=== PATIENT | female | born 1945 | race African-American/Black ===

== ENCOUNTER 2021-01-20 11:42 | Observation (INO) ==
[2021-01-20 12:09] LABS: Basophils % 0.3 % (0.0-0.8); Eosinophils # 0.1 10*3/uL (0.0-0.87); Eosinophils % 1.5 % (0.00-10.9); Hematocrit 35.2 VOL% (35.7-47.0); Hemoglobin 11.3 GM/DL (12.0-16.0); Immature Granulocytes % 0.7 %; Immature Granulocytes Absolute 0.06 #; Lymphocytes # 2.4 10*3/uL (1.4-4.0); Mean Corpuscular HGB Conc 32.1 GM/DL (32-36); Mean Corpuscular Volume 91.4 FL (87-102); Mean Platelet Volume 9.3 FL (9.6-12.0); Monocytes % 8.1 % (1.7-12.7); Neutrophils % 63.4 % (38.7-73.9); Platelet Count 311 T/CUMM (130-400); Red Blood Count 3.85 MC/CUMM (3.8-5.5); Red Cell Distribution Width 14.6 % (9.3-17.3); White Blood Count 9.1 T/CUMM (4-12)
[2021-01-20 12:22] LABS: PT Patient Result 10.8 SECS (9.8-11.9)
[2021-01-20 12:34] LABS: Alanine Aminotransferase < 9 U/L (13-56); Albumin 3.5 G/DL (3.4-5.0); Alkaline Phosphatase 65 U/L (45-117); Anisocytosis 1+; Aspartate Amino Transferase 12 U/L (0-37); Bilirubin,Total < 0.39 MG/DL (0.2-1.0); Blood Urea Nitrogen 13 MG/DL (7-18); Burr Cells Few; Calcium 9.4 MG/DL (8.5-10.1); Carbon Dioxide 21 MMOL/L (21-32); Eosinophils 2 % (0-10); Estimated Glom Filtration Rate 66 ML/MIN; Glucose 96 MG/DL (74-106); Lymphocytes 30 % (20-55); Osmolality,Calculated 276.5 MOS/KG (273-304); Platelet Estimate Normal; Potassium 4.1 MMOL/L (3.5-5.1); Segmented Neutrophils 62 % (50-85); Sodium 139 MMOL/L (136-145); Total Cells Counted 100; Total Protein 7.7 G/DL (6.4-8.2)
[2021-01-20] MEDS ORDERED: ACETAMINOPHEN 500 MG TABLET PO STA (15:09)
[2021-01-20] MEDS ORDERED: ALUMINUM/MAGNES/SIMETH MAX STR 30 ML UDCUP PO PRN (15:37)
[2021-01-20] MEDS ORDERED: GLUCAGON 1 MG VIAL IM PRN (15:37)
[2021-01-20] MEDS ORDERED: guaiFENesin/DM ER 600-30 MG TABLET PO PRN (15:37)
[2021-01-20] MEDS ORDERED: hydrALAZINE 20 MG/1 ML VIAL IV PRN (15:37)
[2021-01-20] MEDS ORDERED: ONDANSETRON 4 MG/2 ML VIAL IV PRN (15:37)
[2021-01-20] MEDS ORDERED: diphenhydrAMINE CAP 25 MG CAPSULE PO PRN (15:37)
[2021-01-20] MEDS ORDERED: DEXTROSE 50% 25 GM/50 ML VIAL IV PRN (15:37)
[2021-01-20] MEDS ORDERED: CALCIUM CARBONATE CHEW 500 MG TABLET PO PRN (15:37)
[2021-01-20] MEDS ORDERED: ACETAMINOPHEN 325 MG TABLET PO PRN (15:37)
[2021-01-20] MEDS ORDERED: DOCUSATE SODIUM 100 MG CAPSULE PO PRN (15:37)
[2021-01-20] MEDS ORDERED: ENOXAPARIN 40 MG/0.4 ML SYRINGE SUBCUT SCH (16:30)
[2021-01-20] MEDS: INSULIN LISPRO 100 UNIT/ML SUBCUT SCH ×2 (17:01→20:46)
[2021-01-20] MEDS: SODIUM CHLORIDE 0.9% 1,000 ML IV SCH (17:21)
[2021-01-20] MEDS: metroNIDAZOLE INJ 500 MG in PREMIX 1 EACH IV SCH ×2 (17:34→23:45)
[2021-01-20] MEDS: CIPROFLOXACIN INJ 400 MG in PREMIX 1 EACH IV SCH (18:38)
[2021-01-20] MEDS: GABAPENTIN 300 MG CAPSULE PO SCH (20:54)
[2021-01-21] MEDS: CIPROFLOXACIN INJ 400 MG in PREMIX 1 EACH IV SCH (04:00)
[2021-01-21 06:21] LABS: Basophils % 0.5 % (0.0-0.8); Eosinophils # 0.2 10*3/uL (0.0-0.87); Eosinophils % 3.2 % (0.00-10.9); Hematocrit 30.4 VOL% (35.7-47.0); Hemoglobin 9.8 GM/DL (12.0-16.0); Immature Granulocytes % 0.5 %; Immature Granulocytes Absolute 0.03 #; Lymphocytes # 1.7 10*3/uL (1.4-4.0); Lymphocytes % 27.4 % (21.3-54.2); Mean Corpuscular HGB Conc 32.2 GM/DL (32-36); Mean Platelet Volume 9.8 FL (9.6-12.0); Monocytes % 9.6 % (1.7-12.7); Neutrophils % 58.8 % (38.7-73.9); Platelet Count 282 T/CUMM (130-400); Red Blood Count 3.34 MC/CUMM (3.8-5.5); Red Cell Distribution Width 14.2 % (9.3-17.3); White Blood Count 6.2 T/CUMM (4-12)
[2021-01-21 06:34] LABS: Alanine Aminotransferase < 6 U/L (13-56); Alkaline Phosphatase 56 U/L (45-117); Aspartate Amino Transferase 12 U/L (0-37); Blood Urea Nitrogen 10 MG/DL (7-18); Calcium 8.9 MG/DL (8.5-10.1); Carbon Dioxide 23 MMOL/L (21-32); Estimated Glom Filtration Rate 74 ML/MIN; Glucose 129 MG/DL (74-106); HDL Cholesterol 32 MG/DL (40-60); Osmolality,Calculated 277.5 MOS/KG (273-304); Potassium 3.5 MMOL/L (3.5-5.1); Risk Ratio 2.19; Sodium 139 MMOL/L (136-145); Total Protein 6.7 G/DL (6.4-8.2); Triglycerides 107 MG/DL (2-150); VLDL CHOLESTEROL 21.4 MG/DL
[2021-01-21 06:44] LABS: Hypochromasia 1+; Microcytosis 1+
[2021-01-21 06:45] LABS: Ovalocytes Slight
[2021-01-21 07:49] LABS: Free T4 (Free Thyroxine) 1.72 NG/DL (0.76-1.46)
[2021-01-21] MEDS: metroNIDAZOLE INJ 500 MG in PREMIX 1 EACH IV SCH (08:23)
[2021-01-21] MEDS: INSULIN LISPRO 100 UNIT/ML SUBCUT SCH ×2 (08:27→15:03)
[2021-01-21] MEDS: GABAPENTIN 300 MG CAPSULE PO SCH (08:44)
[2021-01-21] MEDS ORDERED: PANTOPRAZOLE 40 MG VIAL IV SCH (09:00)
[2021-01-21] MEDS ORDERED: LORATADINE 10 MG TABLET PO SCH (09:00)
[2021-01-21] MEDS ORDERED: DILTIAZEM CD 120 MG CAPSULE PO SCH (09:00)
[2021-01-21] MEDS ORDERED: POTASSIUM CHLORIDE 20 MEQ TABLET PO SCH (09:00)
[2021-01-21] MEDS ORDERED: LOSARTAN 50 MG TABLET PO SCH (09:00)
[2021-01-21] MEDS ORDERED: ATORVASTATIN 10 MG TABLET PO SCH (09:00)
[2021-01-21 12:04] VITALS: BP 128/65
[2021-01-21] MEDS: SODIUM CHLORIDE 0.9% 1,000 ML IV SCH (15:04)
[2021-02-19] MEDS ORDERED: CYANOCOBALAMIN 1000 MCG/1 ML VIAL IM SCH (16:00)
== END 2021-01-21 14:20 | disposition home or self-care (01) ==
LOC: N.EDINP 11:42 → N.ED 11:42 → N.TELEN 16:58
PROVIDERS: ADMIT Internal Medicine; ATTEND Internal Medicine